=== PATIENT | female | born 2000 | race Caucasian/White ===

== ENCOUNTER 2021-11-22 22:06 | Emergency (ER) | payer MEDICAID ==
[~2021-11-22] VITALS: Ht 162.6 cm; Wt 54.0 kg
[2021-11-22 22:30] VITALS: BP 130/65
[2021-11-22 22:45] LABS: APPEARANCE,URINE TURBID (CLEAR); GLUCOSE, URINE (UA) NEGATIVE (NEGATIVE); KETONES,URINE NEGATIVE (NEGATIVE); LEUKOCYTE ESTERASE ,URINE LARGE (NEGATIVE); NITRATE,URINE POSITIVE (NEGATIVE); OCCULT BLOOD,URINE LARGE (NEGATIVE); PH,URINE 5.5 (5.0-8.0); PROTEIN,URINE 100-200,SEE CONFIRM mg/dL (NEGATIVE); SPECIFIC GRAVITIY, URINE 1.022 (1.003-1.030)
[2021-11-22 22:57] LABS: BILIRUBIN,URINE SMALL (NEGATIVE)
[2021-11-22 23:07] LABS: SULFOSALICYLIC ACID,URINE 4+ (Negative); WBC,URINE >100 /HPF (0-5)
[2021-11-22 23:09] LABS: BACTERIA,URINE Many /HPF (None Seen)
[2021-11-22] MEDS ORDERED: CEPH-558 PO (23:20)
== END 2021-11-22 23:33 | disposition home or self-care (01) ==
LOC: EMS 22:06
DX: N12 Tubulo-interstitial nephritis, not specified as acute or chronic (principal)
CPT/HCPCS: 81001; 81002; 84703; 87086; 99283

== ENCOUNTER 2021-11-24 07:54 | Emergency (ER) | payer MEDICAID ==
[~2021-11-24] VITALS: Ht 152.4 cm; Wt 60.4 kg
[~2021-11-24 07:54] MED LIST: CEPH-558 PO
[2021-11-24] MEDS ORDERED: SODIUM CHLORIDE 0.9% 1,000 ML IV ONE (08:15)
[2021-11-24] MEDS ORDERED: CefTRIAXone 1 GM/DEXTROSE 50 ML IV ONE (08:15)
[2021-11-24] MEDS ORDERED: ONDANSETRON HCL 4 MG/2 ML VIAL IVP ONE (08:15)
[2021-11-24] MEDS ORDERED: PHENAZOPYRIDINE HCL 100 MG TABLET PO ONE (08:15)
[2021-11-24] MEDS ORDERED: KETOROLAC TROMETHAMINE 30 MG/ML VIAL IVP ONE (08:15)
[2021-11-24 08:33] LABS: BASOPHILS % (AUTO) 0.4 % (0.0-2.0); EOSINOPHILS % (AUTO) 0.7 % (1.0-6.0); HEMATOCRIT 41.4 % (36-46); HEMOGLOBIN 14.4 g/dL (12.0-16.0); LYMPHOCYTES # (AUTO) 1.7 K/uL (1.0-4.8); LYMPHOCYTES % (AUTO) 18.6 % (22.0-44.0); MEAN CORPUSCULAR HEMOGLOBIN 30.5 pg (26.0-34.0); MEAN CORPUSCULAR HGB CONC 34.8 G/dL (31.0-37.0); MEAN CORPUSCULAR VOLUME 88 fL (80-100); MONOCYTES # (AUTO) 0.8 K/uL (0.1-1.0); MONOCYTES % (AUTO) 8.8 % (2.0-9.0); NEUTROPHILS # (AUTO) 6.7 K/uL (1.8-7.7); NEUTROPHILS % (AUTO) 71.5 % (40.0-70.0); PLATELET COUNT (AUTO) 276 K/uL (150-450); RED BLOOD CELL COUNT(AUTO) 4.72 MIL/uL (4.00-5.20); RED CELL DISTRIBUTION WIDTH 12.9 % (11.5-14.5)
[2021-11-24 08:50] LABS: ANION GAP 8 mmol/L (8-16); CALCIUM, TOTAL 9.4 mg/dL (8.8-10.5); CARBON DIOXIDE 27 mmol/L (22-29); CHLORIDE 102 mmol/L (98-107); CREATININE 0.69 mg/dL (0.60-1.30); GLUCOSE,RANDOM 86 mg/dL (70-110); POTASSIUM 3.4 mmol/L (3.5-5.1); SODIUM SERUM 137 mmol/L (136-145); UREA NITROGEN, BLOOD 8 mg/dL (7-18)
[2021-11-24 08:52] LABS: GLOMERULAR FILTR. RATE CALC > 60 mL/min (>60)
[2021-11-24 08:55] LABS: ALANINE AMINOTRANSFERASE 24 U/L (12-78); ALBUMIN 4.1 g/dL (3.4-5.0); ALKALINE PHOSPHATASE 72 U/L (46-116); ASPARTATE AMINOTRANSFERASE 15 U/L (15-37); BILIRUBIN,TOTAL 1.1 mg/dL (0.1-1.0); LIPASE 65 U/L (73-393); TOTAL PROTEIN, SERUM 8.4 g/dL (6.4-8.2)
[2021-11-24 09:11] LABS: APPEARANCE,URINE HAZY (CLEAR); BILIRUBIN,URINE NEGATIVE (NEGATIVE); GLUCOSE, URINE (UA) NEGATIVE (NEGATIVE); KETONES,URINE NEGATIVE (NEGATIVE); LEUKOCYTE ESTERASE ,URINE LARGE (NEGATIVE); NITRATE,URINE NEGATIVE (NEGATIVE); OCCULT BLOOD,URINE MODERATE (NEGATIVE); PROTEIN,URINE 30-70 mg/dL (NEGATIVE); SPECIFIC GRAVITIY, URINE 1.017 (1.003-1.030); UROBILINOGEN,URINE <=1.0 mg/dL (<=1.0)
[2021-11-24 09:18] LABS: BACTERIA,URINE Many /HPF (None Seen); SQUAMOUS EPITHELIAL CELL,UR Moderate /LPF (None Seen); WBC,URINE >100 /HPF (0-5)
[2021-11-24 10:32] VITALS: BP 105/70
[2021-11-24] MEDS ORDERED: ONDA-104 PO (10:55)
[2021-11-24] MEDS ORDERED: ACET-2080 PO (10:55)
[2021-11-24] MEDS ORDERED: PHEN-1103 PO (10:55)
[2021-11-24] MEDS ORDERED: IBUP-1554 PO (10:55)
== END 2021-11-24 11:04 | disposition home or self-care (01) ==
LOC: EMS 07:54
DX: N12 Tubulo-interstitial nephritis, not specified as acute or chronic (principal); Z87.440 Personal history of urinary (tract) infections
CPT/HCPCS: 99284; 96365; 96375; 96361; 80053; 81001; 83690; 84703; 85025; 36415; 87086; J0696; J1885; J2405; J7030

== ENCOUNTER 2022-06-21 14:38 | Emergency (ER) | payer MEDICAID ==
[~2022-06-21] VITALS: Ht 152.4 cm; Wt 62.7 kg
[~2022-06-21 14:38] MED LIST changes: +ACET-2080 PO; +IBUP-1554 PO; +ONDA-104 PO; +PHEN-674 PO
[2022-06-21] MEDS ORDERED: KETOROLAC TROMETHAMINE 30 MG/ML VIAL IM ONE (16:15)
[2022-06-21] MEDS ORDERED: BACLOFEN 10 MG TABLET PO ONE (16:15)
[2022-06-21] MEDS ORDERED: LIDOCAINE 5% TRANSDERMAL PATCH TD ONE (16:15)
[2022-06-21] MEDS ORDERED: BACL10TA PO (17:30)
[2022-06-21] MEDS ORDERED: IBUP-1492 PO (17:30)
[2022-06-21 17:42] VITALS: BP 110/67
== END 2022-06-21 17:42 | disposition home or self-care (01) ==
LOC: EMS 14:48
DX: M54.89 Other dorsalgia (principal); V98.8XXA Other specified transport accidents, initial encounter; Y93.89 Activity, other specified; Y92.89 Other specified places as the place of occurrence of the external cause; Y99.8 Other external cause status
CPT/HCPCS: 99283; 72040; 96372; J1885

== ENCOUNTER 2023-06-02 10:05 | Emergency (ER) | payer MEDICAID ==
[~2023-06-02] VITALS: Ht 152.4 cm; Wt 68.2 kg
[~2023-06-02 10:05] MED LIST changes: +BACL10TA PO; +IBUP-1492 PO
[2023-06-02 10:17] VITALS: BP 138/81; PULSE 79; RESP 16; TEMP 98.5
[2023-06-02] MEDS ORDERED: PENI500T2 PO (10:18)
[2023-06-02] MEDS ORDERED: ACETAMINOPHEN 500 MG TABLET PO ONE (10:45)
[2023-06-02] MEDS ORDERED: KETOROLAC TROMETHAMINE 30 MG/ML VIAL IM ONE (10:45)
[2023-06-02] MEDS ORDERED: AMOX TR/POT CLAV 875 MG/125 MG TABLET PO ONE (10:45)
[2023-06-02] MEDS ORDERED: ACET-3385 PO (10:47)
[2023-06-02] MEDS ORDERED: AMOX1TAB16 PO (10:47)
[2023-06-02] MEDS ORDERED: IBUP-1492 PO (10:47)
== END 2023-06-02 11:01 | disposition home or self-care (01) ==
LOC: EMS 10:05
DX: K08.89 Other specified disorders of teeth and supporting structures (principal)
CPT/HCPCS: 99283; 96372; J1885